=== PATIENT | male | born 1945 | race Two or more races ===

== ENCOUNTER 2023-01-15 07:30 | Inpatient (IN) | payer OTHER ==
[~2023-01-15] VITALS: Ht 180.3 cm; Wt 116.6 kg
[2023-01-15] MEDS ORDERED: TOPROL XL100 M1 PO (08:59)
[2023-01-15] MEDS ORDERED: TRULICITY1.5 MG/0.5 (09:00)
[2023-01-15] MEDS ORDERED: CHILDREN'S ASPI81 MG PO (09:00)
[2023-01-15] MEDS ORDERED: AVAPRO300 MG PO (09:00)
[2023-01-15] MEDS ORDERED: LIPITOR20 MG PO (09:01)
[2023-01-15] MEDS ORDERED: METFORMIN HCL500 M3 PO (09:01)
[2023-01-15] MEDS ORDERED: TAMS0.4C PO (09:01)
[2023-01-21] MEDS ORDERED: GABAPENTIN100 MG PO (12:42)
[2023-01-21] MEDS ORDERED: NORFLEX100MG PO (12:42)
[2023-01-21] MEDS ORDERED: XARELTO10 MG PO (12:43)
[2023-01-21] MEDS ORDERED: OXYC1TAB9 PO (12:43)
== END 2023-01-21 17:46 | DRG 470 ==
LOC: SURG 07:30 → O/R 01-19 08:32 → SURH 01-19 08:32
PROVIDERS: ADMIT Orthopaedic Surgery; ATTEND Orthopaedic Surgery
PROC: 0SRC0JZ Replacement of Right Knee Joint with Synthetic Substitute, Open Approach (ICD-10-PCS; principal; 2023-01-19 07:00)
DX: M17.11 Unilateral primary osteoarthritis, right knee (principal); D62 Acute posthemorrhagic anemia; M85.661 Other cyst of bone, right lower leg

== ENCOUNTER 2024-07-11 17:13 | Emergency (ER) | payer OTHER ==
[~2024-07-11] VITALS: Ht 180.3 cm; Wt 115.7 kg
[~2024-07-11 17:13] MED LIST: AVAPRO300 MG PO; CHILDREN'S ASPI81 MG PO; GABAPENTIN100 MG PO; LIPITOR20 MG PO; METFORMIN HCL500 M3 PO; NORFLEX100MG PO; OXYC1TAB9 PO; TAMS0.4C PO; TOPROL XL100 M1 PO; TRULICITY1.5 MG/0.5; XARELTO10 MG PO
[2024-07-11 17:32] VITALS: BP 145/94; O2SAT 99
[2024-07-11] MEDS ORDERED: CEFTRIAXONE SODIUM 1,000 MG VIAL IM ONE (17:45)
[2024-07-11] MEDS ORDERED: TETANUS & DIPHTHERIA TOX,ADULT 0.5 ML VIAL IM ONE (17:45)
[2024-07-11] MEDS ORDERED: TETANUS DIPHTHERIA TOX. ADSOR 5 ML VIAL IM ONE (17:54)
[2024-07-11] MEDS ORDERED: CEFTRIAXONE SODIUM 1,000 MG VIAL ONE (17:55)
[2024-07-11] MEDS ORDERED: LIDOCAINE HCL 1% 10ML VIAL PERCUT ONE (18:00)
[2024-07-11 18:11] LABS: HEMATOCRIT 43.6 % (39.0-48.0); HEMOGLOBIN 14.2 g/dL (13-16.00); MEAN CELL VOLUME 85.7 fL (80.0-100.00); MEAN CORPUSCULAR HEMOGLOBIN 27.9 pg (27.00-32.0); MEAN CORPUSCULAR HGB CONC 32.6 g/dl (32.0-36.0); PLATELET COUNT 158 K/uL (150-450); RED CELL DISTRIBUTION WIDTH 16.4 % (11.5-14.5)
[2024-07-11] MEDS ORDERED: CEPHALEXIN750 MG PO (18:57)
[2024-07-11] MEDS ORDERED: PEPCID AC20 MG PO (18:57)
== END 2024-07-11 19:24 | disposition home or self-care (01) ==
LOC: ER 17:15
PROVIDERS: General Practice
DX: S81.811A Laceration without foreign body, right lower leg, initial encounter (principal); X58.XXXA Exposure to other specified factors, initial encounter; Y93.89 Activity, other specified; Y92.89 Other specified places as the place of occurrence of the external cause; Y99.8 Other external cause status
CPT/HCPCS: 12001; 36415; 73590; 90471; 90714; 96372; 99283; J0696; J1670